=== PATIENT | male | born 1980 | race African-American/Black ===

== ENCOUNTER 2017-10-04 20:41 | Inpatient (IN) | payer MEDICAID ==
[~2017-10-04] VITALS: Ht 175.3 cm; Wt 65.8 kg
[2017-10-04] MEDS ORDERED: SODIUM CHLORIDE 0.9% 1000ML BAG (SEPSIS BOLUS) IV ONE (23:45)
[2017-10-04] MEDS ORDERED: ONDANSETRON HCL 4MG/2ML VIAL IV STA (23:45)
[2017-10-04] MEDS ORDERED: ACETAMINOPHEN 325MG TABLET PO STA (23:45)
[2017-10-04] MEDS ORDERED: MORPHINE SULFATE 4 MG/ML CPJ (NOT FOR IM USE) IV STA (23:45)
[2017-10-04] MEDS ORDERED: PIPERACILLIN/TAZ 3.375G PREMIX 50 ML IV ONE (23:45)
[2017-10-04] MEDS ORDERED: VANCOMYCIN 1 G PREMIX 200 ML IV ONE (23:45)
[2017-10-05 00:26] LABS: BG BASE EXCESS -3.2 mmol/L (-2.0-2.0); BG CARBOXYHEMOGLOBIN 0.1 % (0.5-1.5); BG DEOXYHEMOGLOBIN 3.5 % (0.0-5.0); BG FRACTION INSPIRED OXYGEN 21; BG HCO3 ACT 18.5 mmol/L (22.0-26.0); BG METHEMOGLOBIN 0.3 % (0.0-1.5); BG OXYGEN SATURATION 96.5 % (92.0-98.5); BG OXYHEMOGLOBIN 96.1 % (94.0-97.0); BG PCO2 24.1 mmHg (35.0-45.0); BG PH 7.504 (7.350-7.450); BG PO2 82.6 mmHg (75.0-100.0); BG SAMPLE SITE LEFT RADIAL; BG TOTAL HEMOGLOBIN 11.3 g/dL (12.0-18.0); BG VENT MODE ROOM AIR
[2017-10-05 00:27] LABS: BASOPHILS % 0.2 % (0.0-2.0); HEMOGLOBIN. 11.6 g/dL (14.0-18.0); LYMPHOCYTES % 9.5 % (20.0-50.0); MEAN CORPUSCULAR HEMOGLOBIN 23.4 pg (28.0-32.0); MEAN CORPUSCULAR VOLUME 70.9 fL (80.0-94.0); MEAN PLATELET VOLUME 8.2 fl (7.4-10.4); MONOCYTES % 3.5 % (2.0-8.0); NEUTROPHILS % 86.8 % (40.0-76.0); PLATELET 250 x1000/uL (130-400); RED BLOOD CELL COUNT 4.94 mill/uL (4.7-6.1); RED CELL DISTRIBUTION WIDTH 19.6 % (11.6-14.6)
[2017-10-05 00:29] LABS: CHLORIDE 93 mEq/L (98-107)
[2017-10-05 00:34] LABS: INR 1.2; PROTHROMBIN TIME 12.3 sec (9.4-11.6)
[2017-10-05 00:37] LABS: CARBON DIOXIDE 22 mEq/L (21-32)
[2017-10-05] MEDS ORDERED: SODIUM CHLORIDE 0.9% 1,000 ML IV SCH (03:47)
[2017-10-05 03:59] LABS: CLARITY URINE CLEAR (CLEAR); COLOR URINE YELLOW (YELLOW); KETONES URINE NEGATIVE (NEGATIVE); LEUKOCYTE ESTERASE URINE NEGATIVE (NEGATIVE); NITRITE URINE NEGATIVE (NEGATIVE); OCCULT BLOOD URINE TRACE (NEGATIVE); PH URINE 5.5 (4.5-8.0); PROTEIN URINE 2+ (NEGATIVE); SPECIFIC GRAVITY URINE 1.013 (1.005-1.030); UROBILINOGEN URINE 0.2 E.U./dL (0.2-1.0)
[2017-10-05 11:00] VITALS: BP 107/59
[2017-10-05] MEDS ORDERED: HYDROCODONE/ACETAMINOPHEN 5/325MG TABLET PO PRN ×2 (11:45→15:00)
[2017-10-05 12:00] VITALS: BP 110/63
[2017-10-05] MEDS ORDERED: DOCUSATE SODIUM 100MG CAPSULE PO PRN (15:00)
[2017-10-05] MEDS ORDERED: ACETAMINOPHEN 325MG TABLET PO PRN (15:00)
[2017-10-05] MEDS ORDERED: MAGNESIUM/ALUMINUM HYDROXIDE/SIMETHICONE 30ML UDC PO PRN (15:00)
[2017-10-05] MEDS ORDERED: CLONIDINE 0.1MG TABLET PO PRN (15:00)
[2017-10-05] MEDS ORDERED: GUAIFENESIN 200MG/10ML SUGAR FREE UDC PO PRN (15:00)
[2017-10-05] MEDS ORDERED: IPRATROPIUM/ALBUTEROL 0.5-3(2.5)MG/3ML NEB INH PRN (15:00)
[2017-10-05] MEDS ORDERED: ONDANSETRON HCL 4MG/2ML VIAL IV PRN (15:00)
[2017-10-05] MEDS: ENOXAPARIN 40MG/0.4ML SYR SUBCUT SCH (15:00)
[2017-10-05] MEDS ORDERED: ELVI1TAB3 (15:21)
[2017-10-05] MEDS ORDERED: VANCOMYCIN 1500MG in DEXTROSE 5% WATER 250ML IV SCH (17:00)
[2017-10-05] MEDS: PIPERACILLIN/TAZ 3.375G PREMIX 50 ML IV SCH (18:24)
[2017-10-05] MEDS: SODIUM CHLORIDE 0.9% 1,000 ML IV SCH (18:24)
[2017-10-05] MEDS: RALTEGRAVIR 400MG TABLET PO SCH (18:25)
[2017-10-05 18:48] VITALS: BP 120/75
[2017-10-06 00:15] VITALS: BP 126/78
[2017-10-06] MEDS: PIPERACILLIN/TAZ 3.375G PREMIX 50 ML IV SCH ×4 (00:15→18:09)
[2017-10-06 00:59] LABS: CREATINE KINASE 61 IU/L (39-308); CREATINE KINASE MB FRACTION 1.1 ng/mL (0.5-3.6); TROPONIN I < 0.02 ng/mL (0.00-0.04)
[2017-10-06] MEDS: VANCOMYCIN 750 MG PREMIX 150 ML IV SCH ×2 (02:23→09:26)
[2017-10-06 04:00] VITALS: BP 119/77
[2017-10-06] MEDS: SODIUM CHLORIDE 0.9% 1,000 ML IV SCH ×2 (06:05→20:26)
[2017-10-06 08:30] VITALS: BP 124/78
[2017-10-06] MEDS ORDERED: SULFAMETHOXAZOLE/TRIMETHOPRIM 800/160MG TABLET PO SCH (09:00)
[2017-10-06] MEDS: TENOFOVIR 300MG TABLET PO SCH (09:25)
[2017-10-06] MEDS: RALTEGRAVIR 400MG TABLET PO SCH ×2 (09:25→18:09)
[2017-10-06] MEDS: LAMIVUDINE 150MG TABLET PO SCH (09:25)
[2017-10-06 10:13] LABS: BASOPHILS % 0.4 % (0.0-2.0); EOSINOPHILS % 1.3 % (0.0-5.0); HEMATOCRIT. 31.7 % (42.0-52.0); HEMOGLOBIN. 10.2 g/dL (14.0-18.0); LYMPHOCYTES % 15.9 % (20.0-50.0); MEAN CORPUSCULAR HEMOGLOBIN 23.1 pg (28.0-32.0); MEAN CORPUSCULAR VOLUME 71.6 fL (80.0-94.0); MEAN PLATELET VOLUME 8.4 fl (7.4-10.4); MONOCYTES % 5.4 % (2.0-8.0); PLATELET 287 x1000/uL (130-400); RED BLOOD CELL COUNT 4.43 mill/uL (4.7-6.1); RED CELL DISTRIBUTION WIDTH 18.8 % (11.6-14.6)
[2017-10-06 10:40] LABS: CARBON DIOXIDE 24 mEq/L (21-32); CHLORIDE 102 mEq/L (98-107); CREATINE KINASE 54 IU/L (39-308); HDL CHOLESTEROL 10 mg/dL (40-59); LDL CHOLESTEROL 44 mg/dL (5-100); TROPONIN I < 0.02 ng/mL (0.00-0.04)
[2017-10-06 12:40] VITALS: BP 128/79
[2017-10-06] MEDS ORDERED: POTASSIUM CHLORIDE 20MEQ TABLET SR PO NR (14:00)
[2017-10-06] MEDS: ENOXAPARIN 40MG/0.4ML SYR SUBCUT SCH (15:00)
[2017-10-06] MEDS: VANCOMYCIN 1250MG in DEXTROSE 5% WATER 250ML IV SCH ×2 (15:42→23:26)
[2017-10-06 15:51] LABS: GLUCOSE CSF 52 mg/dL (41-75)
[2017-10-06] MEDS: IPRATROPIUM/ALBUTEROL 0.5-3(2.5)MG/3ML NEB HHN SCH ×2 (16:00→20:00)
[2017-10-06] MEDS: SULFAMETHOXAZOLE/TRIMETHOPRIM 800/160MG TABLET PO SCH (18:09)
[2017-10-06 20:00] VITALS: BP 113/67
[2017-10-06] MEDS: PENICILLIN G POTASSIUM 5 MMU in SODIUM CHLORIDE 0.9% 100 ML IV SCH (20:26)
[2017-10-07] VITALS: BP 113/41
[2017-10-07] MEDS: PIPERACILLIN/TAZ 3.375G PREMIX 50 ML IV SCH ×4 (00:41→17:21)
[2017-10-07] MEDS: SULFAMETHOXAZOLE/TRIMETHOPRIM 800/160MG TABLET PO SCH ×4 (00:41→17:21)
[2017-10-07] MEDS: PENICILLIN G POTASSIUM 5 MMU in SODIUM CHLORIDE 0.9% 100 ML IV SCH ×4 (00:42→17:21)
[2017-10-07] MEDS: IPRATROPIUM/ALBUTEROL 0.5-3(2.5)MG/3ML NEB HHN SCH ×3 (01:18→20:13)
[2017-10-07 02:35] LABS: *AMPHETAMINES SCREEN URINE NEGATIVE (NEGATIVE); *BARBITURATES SCREEN URINE NEGATIVE (NEGATIVE); *BENZODIAZEPINES SCREEN URINE NEGATIVE (NEGATIVE); *COCAINE SCREEN URINE NEGATIVE (NEGATIVE); CANNABINOID URINE SCREEN NEGATIVE (NEGATIVE); METHADONE URINE SCREEN NEGATIVE (NEGATIVE); OPIATES URINE SCREEN NEGATIVE (NEGATIVE); PHENCYCLIDINE URINE SCREEN NEGATIVE (NEGATIVE)
[2017-10-07 04:00] VITALS: BP 110/62
[2017-10-07] MEDS: VANCOMYCIN 1250MG in DEXTROSE 5% WATER 250ML IV SCH ×3 (06:14→23:10)
[2017-10-07] MEDS: SODIUM CHLORIDE 0.9% 1,000 ML IV SCH ×2 (06:14→14:59)
[2017-10-07 07:20] LABS: BASOPHILS % 0.3 % (0.0-2.0); EOSINOPHILS % 2.3 % (0.0-5.0); HEMATOCRIT. 26.5 % (42.0-52.0); HEMOGLOBIN. 8.6 g/dL (14.0-18.0); LYMPHOCYTES % 18.4 % (20.0-50.0); MEAN CORPUSCULAR HEMOGLOBIN 23.1 pg (28.0-32.0); MEAN CORPUSCULAR VOLUME 71.5 fL (80.0-94.0); MEAN PLATELET VOLUME 8.2 fl (7.4-10.4); MONOCYTES % 5.5 % (2.0-8.0); NEUTROPHILS % 73.5 % (40.0-76.0); PLATELET 295 x1000/uL (130-400); RED CELL DISTRIBUTION WIDTH 19.1 % (11.6-14.6)
[2017-10-07 08:00] VITALS: BP 104/67
[2017-10-07] MEDS: LAMIVUDINE 150MG TABLET PO SCH (08:55)
[2017-10-07] MEDS: TENOFOVIR 300MG TABLET PO SCH (08:55)
[2017-10-07] MEDS: RALTEGRAVIR 400MG TABLET PO SCH ×2 (08:55→21:41)
[2017-10-07 12:00] VITALS: BP 121/73
[2017-10-07] MEDS: ENOXAPARIN 40MG/0.4ML SYR SUBCUT SCH (14:59)
[2017-10-07 16:00] VITALS: BP 122/73
[2017-10-07 20:00] VITALS: BP 123/68
[2017-10-08] VITALS (7 sets, daily range): BP systolic 16–121; BP diastolic 51–73
[2017-10-08] MEDS: IPRATROPIUM/ALBUTEROL 0.5-3(2.5)MG/3ML NEB HHN SCH ×5 (00:06→16:00)
[2017-10-08] MEDS: PENICILLIN G POTASSIUM 5 MMU in SODIUM CHLORIDE 0.9% 100 ML IV SCH ×5 (00:17→23:54)
[2017-10-08] MEDS: SULFAMETHOXAZOLE/TRIMETHOPRIM 800/160MG TABLET PO SCH ×5 (00:17→23:54)
[2017-10-08] MEDS ORDERED: LEVOFLOXACIN 250MG TABLET PO ONE (01:00)
[2017-10-08] MEDS: PIPERACILLIN/TAZ 3.375G PREMIX 50 ML IV SCH ×5 (01:25→23:26)
[2017-10-08] MEDS: VANCOMYCIN 1250MG in DEXTROSE 5% WATER 250ML IV SCH (07:23)
[2017-10-08] MEDS: TENOFOVIR 300MG TABLET PO SCH (08:10)
[2017-10-08] MEDS: RALTEGRAVIR 400MG TABLET PO SCH ×2 (08:10→16:13)
[2017-10-08] MEDS: LAMIVUDINE 150MG TABLET PO SCH (08:10)
[2017-10-08] MEDS: SODIUM CHLORIDE 0.9% 1,000 ML IV SCH (08:12)
[2017-10-08 12:53] LABS: BASOPHILS % 0.2 % (0.0-2.0); HEMATOCRIT. 28.1 % (42.0-52.0); HEMOGLOBIN. 9.1 g/dL (14.0-18.0); LYMPHOCYTES % 27.8 % (20.0-50.0); MEAN CORPUSCULAR HEMOGLOBIN 23.2 pg (28.0-32.0); MEAN CORPUSCULAR VOLUME 71.4 fL (80.0-94.0); MEAN PLATELET VOLUME 7.7 fl (7.4-10.4); MONOCYTES % 7.8 % (2.0-8.0); NEUTROPHILS % 62.2 % (40.0-76.0); PLATELET 416 x1000/uL (130-400); RED BLOOD CELL COUNT 3.93 mill/uL (4.7-6.1); RED CELL DISTRIBUTION WIDTH 19.3 % (11.6-14.6)
[2017-10-08 13:33] LABS: CARBON DIOXIDE 20 mEq/L (21-32); CHLORIDE 96 mEq/L (98-107)
[2017-10-08] MEDS ORDERED: VANCOMYCIN 1,250 MG in SODIUM CHLORIDE 0.9% 250 ML IV SCH (15:00)
[2017-10-08] MEDS: ENOXAPARIN 40MG/0.4ML SYR SUBCUT SCH (15:00)
[2017-10-08] MEDS: VANCOMYCIN 1,250 MG in SODIUM CHLORIDE 0.9% 250 ML IV SCH (19:40)
[2017-10-09 00:10] VITALS: BP 127/78
[2017-10-09] MEDS: VANCOMYCIN 1,250 MG in SODIUM CHLORIDE 0.9% 250 ML IV SCH ×3 (02:27→18:41)
[2017-10-09] MEDS: SODIUM CHLORIDE 0.9% 1,000 ML IV SCH (03:27)
[2017-10-09 04:00] VITALS: BP 109/54
[2017-10-09] MEDS: PIPERACILLIN/TAZ 3.375G PREMIX 50 ML IV SCH ×3 (05:23→16:55)
[2017-10-09] MEDS: SULFAMETHOXAZOLE/TRIMETHOPRIM 800/160MG TABLET PO SCH ×3 (05:41→16:55)
[2017-10-09] MEDS: PENICILLIN G POTASSIUM 5 MMU in SODIUM CHLORIDE 0.9% 100 ML IV SCH ×4 (05:41→23:45)
[2017-10-09] MEDS: IPRATROPIUM/ALBUTEROL 0.5-3(2.5)MG/3ML NEB HHN SCH ×2 (07:55→20:00)
[2017-10-09 08:00] VITALS: BP 104/56
[2017-10-09] MEDS: TENOFOVIR 300MG TABLET PO SCH (08:57)
[2017-10-09] MEDS: LAMIVUDINE 150MG TABLET PO SCH (08:57)
[2017-10-09] MEDS: RALTEGRAVIR 400MG TABLET PO SCH ×2 (08:57→16:56)
[2017-10-09 12:00] VITALS: BP 113/66
[2017-10-09] MEDS: ENOXAPARIN 40MG/0.4ML SYR SUBCUT SCH (14:32)
[2017-10-09 16:00] VITALS: BP 168/91
[2017-10-09 20:00] VITALS: BP 95/60
[2017-10-10] VITALS: BP 111/78
[2017-10-10] MEDS: PIPERACILLIN/TAZ 3.375G PREMIX 50 ML IV SCH ×2 (00:36→06:36)
[2017-10-10] MEDS: SULFAMETHOXAZOLE/TRIMETHOPRIM 800/160MG TABLET PO SCH ×2 (00:37→05:28)
[2017-10-10] MEDS: SODIUM CHLORIDE 0.9% 1,000 ML IV SCH ×2 (01:40→02:36)
[2017-10-10 04:00] VITALS: BP 117/69
[2017-10-10] MEDS: IPRATROPIUM/ALBUTEROL 0.5-3(2.5)MG/3ML NEB HHN SCH ×2 (04:00)
[2017-10-10] MEDS: PENICILLIN G POTASSIUM 5 MMU in SODIUM CHLORIDE 0.9% 100 ML IV SCH (05:28)
[2017-10-10 08:00] VITALS: BP 103/73
[2017-10-10] MEDS: TENOFOVIR 300MG TABLET PO SCH (09:13)
[2017-10-10] MEDS: RALTEGRAVIR 400MG TABLET PO SCH (09:14)
[2017-10-10] MEDS: LAMIVUDINE 150MG TABLET PO SCH (09:14)
== END 2017-10-10 11:05 | disposition left against medical advice (07) | DRG 890 ==
LOC: ER 20:41 → 7WST 10-05 03:49 → EDBEDREQ 10-05 04:15 → EDBEDREQTM 10-05 04:15 → EDBEDREQSVC 10-05 04:15 → ENRESERV 10-05 08:51 → 7WST 10-05 11:33
PROVIDERS: ADMIT Internal Medicine; ATTEND Internal Medicine
PROC: 009U3ZZ Drainage of Spinal Canal, Percutaneous Approach (ICD-10-PCS; principal; 2017-10-06)
PROC: B01B1ZZ Fluoroscopy of Spinal Cord using Low Osmolar Contrast (ICD-10-PCS; 2017-10-06)
DX: B20 Human immunodeficiency virus [HIV] disease (principal); J96.00 Acute respiratory failure, unspecified whether with hypoxia or hypercapnia; A41.9 Sepsis, unspecified organism; E43 Unspecified severe protein-calorie malnutrition; J18.1 Lobar pneumonia, unspecified organism; E87.1 Hypo-osmolality and hyponatremia; K56.7 Ileus, unspecified; R73.9 Hyperglycemia, unspecified; D50.9 Iron deficiency anemia, unspecified; Z53.21 Procedure and treatment not carried out due to patient leaving prior to being seen by health care provider; E87.6 Hypokalemia; Z59.0 Homelessness; Z91.19 Patient's noncompliance with other medical treatment and regimen; Z68.21 Body mass index [BMI] 21.0-21.9, adult
CPT/HCPCS: 36415; 36600; 62270; 70450; 71045; 71250; 74018; 74176; 77003; 80048; 80053; 80061; 80202; 80305; 81001; 82270; 82375; 82550; 82553; 82805; 82945; 83605; 83735; 83930; 84145; 84157; 84443; 84484; 85025; 85610; 86359; 86360; 86592; 86593; 86777; 86778; 86780; 86788; 86789; 87040; 87070; 87086; 87205; 87493; 87536; 87804; 89050; 89055; 93005; 93970; 96365; 96375; 99291; J1650; J2270; J2405; J2540; J2543; J3370; J7030; J7050; J7060; J7620

== ENCOUNTER 2018-06-29 11:42 | Emergency (ER) | payer MEDICAID ==
[~2018-06-29] VITALS: Ht 175.3 cm; Wt 75.0 kg
[~2018-06-29 11:42] MED LIST: ELVI1TAB3
[2018-06-29] MEDS ORDERED: VISCOUS LIDOCAINE 2% 15 ML UDC MM STA (12:18)
[2018-06-29] MEDS ORDERED: LIDOCAINE HCL 2% JELLY 5ML MM ONE (13:00)
[2018-06-29 13:13] LABS: BASOPHILS % 0.6 % (0.0-2.0); EOSINOPHILS % 1.1 % (0.0-5.0); HEMATOCRIT. 31.2 % (42.0-52.0); HEMOGLOBIN. 10.1 g/dL (14.0-18.0); LYMPHOCYTES % 36.2 % (20.0-50.0); MEAN CORPUSCULAR HEMOGLOBIN 23.1 pg (28.0-32.0); MEAN CORPUSCULAR VOLUME 71.2 fL (80.0-94.0); MEAN PLATELET VOLUME 7.3 fl (7.4-10.4); MONOCYTES % 11.5 % (2.0-8.0); NEUTROPHILS % 50.6 % (40.0-76.0); PLATELET 387 x1000/uL (130-400); RED BLOOD CELL COUNT 4.38 mill/uL (4.7-6.1); RED CELL DISTRIBUTION WIDTH 17.5 % (11.6-14.6)
[2018-06-29 13:17] LABS: CHLORIDE 113 mEq/L (98-107)
[2018-06-29 14:30] VITALS: BP 139/83
== END 2018-06-29 14:30 | disposition home or self-care (01) ==
LOC: ER 12:40
DX: K62.89 Other specified diseases of anus and rectum (principal); R19.7 Diarrhea, unspecified; Z91.14 Patient's other noncompliance with medication regimen; F15.10 Other stimulant abuse, uncomplicated; Z79.899 Other long term (current) drug therapy
CPT/HCPCS: 36415; 80053; 85025; 99284

== ENCOUNTER 2025-09-12 22:02 | Emergency (ER) | payer MEDICAID ==
[~2025-09-12] VITALS: Ht 177.8 cm; Wt 68.5 kg
[2025-09-12 22:12] VITALS: O2SAT 99
[2025-09-12 22:22] VITALS: BP 168/108; PULSE 120; RESP 18; TEMP 36.7; O2SAT 99
[2025-09-12] MEDS ORDERED: CARB-274 EACH EAR (23:32)
[2025-09-12] MEDS ORDERED: OFLO5DRO4 EACH EAR ×2 (23:32→23:35)
== END 2025-09-12 23:54 | disposition home or self-care (01) ==
LOC: ER 22:02
DX: H66.43 Suppurative otitis media, unspecified, bilateral (principal); F15.90 Other stimulant use, unspecified, uncomplicated
CPT/HCPCS: 99283